=== PATIENT | female | born 1950 | race Caucasian/White ===

== ENCOUNTER 2022-06-26 07:27 | Day surgery (SDC) | payer OTHER ==
[~2022-06-26 07:27] MED LIST: Lactated Ringers 1,000 ML IV SCH
[2022-06-26] MEDS ORDERED: Propofol 200 MG/20 ML SDV ONE ×2 (08:08→09:50)
[2022-06-26] MEDS ORDERED: fentaNYL 100 MCG/2 ML SDV ONE (08:08)
== END 2022-06-26 11:03 | disposition home or self-care (01) ==
LOC: VM.SDS 07:27
PROVIDERS: ATTEND Family Medicine
DX: Z12.11 Encounter for screening for malignant neoplasm of colon (principal); D12.2 Benign neoplasm of ascending colon; D12.3 Benign neoplasm of transverse colon; K57.30 Diverticulosis of large intestine without perforation or abscess without bleeding; K64.9 Unspecified hemorrhoids; E55.9 Vitamin D deficiency, unspecified; E66.9 Obesity, unspecified; E78.00 Pure hypercholesterolemia, unspecified; E03.4 Atrophy of thyroid (acquired); F33.1 Major depressive disorder, recurrent, moderate; Z79.899 Other long term (current) drug therapy; Z98.890 Other specified postprocedural states; Z80.0 Family history of malignant neoplasm of digestive organs; Z68.36 Body mass index [BMI] 36.0-36.9, adult
CPT/HCPCS: 00811; 45380; 45385; J2704; J3010; J7120